=== PATIENT | female | born 1960 | race Caucasian/White ===

== ENCOUNTER 2021-03-25 07:46 | Day surgery (SDC) | payer OTHER, SELFPAY ==
[2021-03-25 08:43] VITALS: BP 137/78; PULSE 79; RESP 16; TEMP 36.6; O2SAT 100; BMI 28.0
[2021-03-25] MEDS: Lactated Ringers 1,000 ML 100 ML IV (08:49)
--- NOTE | 2021-03-25 09:15 | PCM.HP.BLA ---
History and Physical Date of Admission: 03/25/21 [facility] Details: FANNY GARCIA, is a 60 F who presents to the office today for full evaluation of bloating, intermittent nausea and abdominal pressure. She is status post 3 C-sections, appendectomy and tubal ligation. She has intermittent abdominal discomfort has been going on for the past 2 years. She did have a CT scan abdomen pelvis did not show any abnormalities in her GI tract. She thought that because she did have the 3 C-sections that she developed scar tissue. Weight has been stable. She has not had any bleeding or hematochezia. She drinks a combination of fiber with fruits and minerals that allow her to have a bowel movement every day. She was referred to our office from her PCP due bloating and possible gastric ulcer. She was prescribed omeprazole 40mg QD which did not help. She used omperazole OTC for some heartburn in the past. She quit taking this due to osteoporosis concerns and modified diet and reflux is under control. Her last colonoscopy performed about 20 years ago. She has not had a upper endoscopy. She does get bloating and heartburn on a daily basis. She has not been evaluated for Wise's esophagus. She does not on a daily basis. She does not smoke cigarettes. She does have a strong family history of breast cancer and lymphoma. ROS Const Constitutional: No anorexia, fatigue, fever(s), weight change or sleep problems Eyes Eyes: No change in vision ENT ENT: No abnormal hearing, difficulty swallowing, mouth lesions, tongue swelling or throat swelling Resp Respiratory: No cough or shortness of breath Cardio Cardiology: No chest pain at rest, chest pain with exertion, shortness of breath or dyspnea on exertion Gastro GI: Positive for bloating and heartburn; No difficulty swallowing Genitourinary-Female: No difficulty urinating or burning urination Musc Musculoskeletal: No joint pain, joint swelling, muscle weakness or decreased muscle mass Skin Skin: No hair loss in leg, yellowing of the eye, itchy eyes, rash, skin ulcer or skin swelling Neuro Neurology: No abnormal hearing, abnormal movements, confusion, unsteady gait/balance or memory loss Psych Psychiatric: No anxiety, No confusion and No memory loss Endo Endocrine: No fatigue or weight change Aller/Imm Allergy/Immunologic: No itchy eyes, throat swelling or tongue swelling Eliezer/Lymp Hematologic/Lymphatic: No easy bleeding, easy bruising or enlarged lymph nodes Exam Const General: cooperative and comfortable Nutritional Appearance: average body habitus and well nourished [facility] Head: normal to inspection Ears: hearing grossly normal bilaterally Nose: external nose normal Face and sinus: normal facial exam Mouth: oral mucosae normal Throat: posterior oropharynx normal Eyes General: appearance normal, both eyes and all related structures Neck Neck: normal visual inspection Chest Chest palpation & inspection: normal inspection of the chest and normal palpation of entire chest wall Resp Effort & Inspection: normal respiratory effort Auscultation: Bilateral: Clear to Auscultation Cardio Palpation: normal PMI Rate: regular rate Rhythm: regular rhythm GI Inspection: normal to inspection Auscultation: normal bowel sounds Percussion: normal to percussion Palpation: no hepatosplenomegaly Skin General: no rashes or lesions noted Neuro General: patient alert Extrem General: normal to inspection Psych Affect: normal affect Assessment and Plan Assessment and Plan (1) GERD (gastroesophageal reflux disease): Status: Acute Plan - Dr. Yu Friend, DO: She should be screened for Wise's esophagus. The differential diagnosis for her GERD could be secondary to hiatal hernia, nonerosive reflux esophagitis or gastro esophageal reflux disease. I would not add any medicines at this time. (2) Encounter for screening colonoscopy: Status: Acute Plan - Dr. Yu Friend, DO: Patient should undergo screening colonoscopy and look for signs of diverticular disease which could cause her symptoms. She was explained alternatives, risk, benefits including not withstanding bleeding, infection, sepsis, perforation, need for emergency or . She will have ASA 1. (3) Bloating: Status: Acute Plan - Dr. Yu Friend, DO: Also in the differential diagnosis for her bloating could be small bacterial overgrowth, peptic ulcer disease or ulcers in GI tract secondary to NSAIDs. We will evaluate this when she undergoes endoscopy. This is an updated H&P.
[2021-03-25 09:45] VITALS: BP 107/64; BP 137/78; PULSE 73; RESP 18; TEMP 36.4; O2SAT 99
[2021-03-25 09:50] VITALS: BP 111/71; BP 137/78; PULSE 74; RESP 18; O2SAT 98
--- NOTE | 2021-03-25 09:52 | OP.COLON_ITS ---
Patient Name: Shannen Holland Procedure Date: 03/25/2021 9:18 AM Date of : 1960 Age: 60 Procedure: Colonoscopy Indications: Screening for colorectal malignant neoplasm Providers: Gigi Brumfield DO Medicines: Propofol per Anesthesia Patient Profile: This is a 60 year old female. Refer to note in patient chart for documentation of history and physical. Last Colonoscopy: 10 years ago. Complications: No immediate complications. Procedure: Pre-Anesthesia Assessment: - Prior to the procedure, a History and Physical was performed, and patient medications and allergies were reviewed. The patient is competent. The risks and benefits of the procedure and the sedation options and risks were discussed with the patient. All questions were answered and informed consent was obtained. Patient identification and proposed procedure were verified by the physician in the pre-procedure area. Mental Status Examination: alert and oriented. Airway Examination: normal oropharyngeal airway and neck mobility. Respiratory Examination: clear to auscultation. CV Examination: normal. Prophylactic Antibiotics: The patient does not require prophylactic antibiotics. Prior Anticoagulants: The patient has taken no previous anticoagulant or antiplatelet agents. ASA Grade Assessment: II - A patient with mild systemic disease. After reviewing the risks and benefits, the patient was deemed in satisfactory condition to undergo the procedure. The anesthesia plan was to use moderate sedation / analgesia (conscious sedation). Immediately prior to administration of medications, the patient was re-assessed for adequacy to receive sedatives. The heart rate, respiratory rate, oxygen saturations, blood pressure, adequacy of pulmonary ventilation, and response to care were monitored throughout the procedure. The physical status of the patient was re-assessed after the procedure. After I obtained informed consent, the scope was passed under direct vision. Throughout the procedure, the patient's blood pressure, pulse, and oxygen saturations were monitored continuously. The Colonoscope was introduced through the anus and advanced to the cecum, identified by appendiceal orifice and ileocecal valve. The colonoscopy was performed without difficulty. The patient tolerated the procedure well. The quality of the bowel preparation was good. Moderate Sedation: Moderate (conscious) sedation was administered by the endoscopy nurse and supervised by the endoscopist. The patient's oxygen saturation, heart rate, blood pressure and response to care were monitored. Total physician intraservice time was 15 minutes. Scope In: 9:29:40 AM Scope Withdrawal Time 0 hours 9 minutes 10 seconds Scope Out: 9:42:21 AM Total Procedure Duration Time 0 hours 12 minutes 41 seconds Findings: The perianal and digital rectal examinations were normal. A few small-mouthed diverticula were found in the sigmoid colon. The entire examined colon appeared normal on direct and retroflexion views. Impression: - Diverticulosis in the sigmoid colon. - The entire examined colon is normal on direct and retroflexion views. - No specimens collected. Recommendation: - Discharge patient to home. - Resume previous diet. - Continue present medications. - Await pathology results. - Repeat colonoscopy in 5 years for surveillance. - Return to GI office in 2 weeks. Procedure Code(s): --- Professional --- 78270, Colonoscopy, flexible; diagnostic, including collection of specimen(s) by brushing or washing, when performed (separate procedure) G0500, Moderate sedation services provided by the same physician or other qualified health wound care rn performing a gastrointestinal endoscopic service that sedation supports, requiring the presence of an independent trained observer to assist in the monitoring of the patient's level of consciousness and physiological status; initial 15 minutes of intra-service time; patient age 5 years or older (additional time may be reported with 35318, as appropriate) Diagnosis Code(s): --- Professional --- Z12.11, Encounter for screening for malignant neoplasm of colon K57.30, Diverticulosis of large intestine without perforation or abscess without bleeding CPT copyright 2017 [employer] [place] [employer]. All rights reserved. The codes documented in this report are preliminary and upon psychologists review may be revised to meet current compliance requirements. Gigi Brumfield DO 03/25/2021 9:52:02 AM This report has been signed electronically. Number of Addenda: 1 Note Initiated On: 03/25/2021 9:18 AM Addendum Number: 1 Addendum Date: 01/30/2022 4:46:59 PM MAC was used instead of moderate sedation for this patient. Gigi Brumfield DO 01/30/2022 4:47:06 PM This report has been signed electronically.
[2021-03-25 09:55] VITALS: BP 108/77; BP 137/78; PULSE 69; RESP 18; O2SAT 100
[2021-03-25 10:00] VITALS: BP 107/91; BP 137/78; PULSE 72; RESP 18; TEMP 36.4; O2SAT 100
[2021-03-25 10:14] VITALS: BP 137/78
== END 2021-03-25 10:25 | disposition home or self-care (01) ==
LOC: EN 07:51 → AC 08:02
PROVIDERS: PCP Student in an Organized Health Care Education/Training Program; Referring Provider Internal Medicine Gastroenterology; Visit Provider Internal Medicine Gastroenterology
PROC: 0DJD8ZZ Inspection of Lower Intestinal Tract, Via Natural or Artificial Opening Endoscopic (ICD-10-PCS; CPT 45378; principal; 2021-03-25 08:55)
DX: Z12.11 Encounter for screening for malignant neoplasm of colon (principal); K57.30 Diverticulosis of large intestine without perforation or abscess without bleeding; K21.9 Gastro-esophageal reflux disease without esophagitis; Z79.899 Other long term (current) drug therapy
CPT/HCPCS: 45378; J7120; J2405